=== PATIENT | male | born 1945 ===

== ENCOUNTER 2022-12-14 09:54 | Outpatient (OUT) | payer MEDICARE, OTHER, SELFPAY ==
--- NOTE | 2022-12-14 | VEIN_ITS ---
Patient: CROW WESLEY Exam Date: 12/14/2022 : 1945 Gender:M Ordering : PORTIA REESE Admission #: [id number] Family : FLAKITA CORA WOUND C Order #: [id number] CLICK HERE TO VIEW EXAM RADIOLOGY REPORT PROCEDURE: VC EXT VENOUS REFLUX ROBERTA LMTD COMPARISON: None. INDICATIONS: Pain due to varicose veins of bilateral legs I83.813 TECHNIQUE: Duplex imaging of the lower extremity to assess the deep and superficial venous system for the presence of deep or superficial venous incompetence and to document the location and severity of disease. The study includes evaluation of the great saphenous vein (GSV), anterior accessory saphenous vein (AASV) and small saphenous vein (SSV). Patient scanned in reverse Trendelenburg and standing. FINDINGS: RIGHT LOWER EXTREMITY: Saphenofemoral Junction Reflux: Yes 8.2mm 1.4 sec GSV: Diam (mm) Reflux/ Time (sec) Proximal Thigh 2.6 No Mid Thigh N/A Distal Thigh 4.9 Yes 1.3 Prox Calf N/A Mid Calf N/A Saphenopopliteal Junction Reflux: N/A SSV: Proximal Calf N/A Mid Calf N/A AASV: Not present Proximal Thigh Mid Thigh Distal Thigh Thrombi: No acute or chronic thrombus. Compressibility: Normal. Flow: Mild deep venous reflux. Severe reflux in popliteal vein. Preforator: Medial ankle 3.4mm with 4.5s reflux. Medial distal lower leg near wound 5.1 mm with 1.5s reflux. Tech Note: Plaque throughout lower extremity with normal triphasic waveform. Previously treated GSV and SSV. Incompetent varicose vein mid medial lower leg measures 4.0 mm with 2.2s reflux. Mid posterior calf varicose vein measures 2.9 mm without reflux. Varicose vein proximal medial lower leg measures 3.4 mm with 1.1s reflux. LEFT LOWER EXTREMITY: Saphenofemoral Junction Reflux: No 7.0 mm 0 sec GSV: Diam (mm) Reflux/Time (sec) Proximal Thigh 5.7 Yes 0.5 Mid Thigh N/A Distal Thigh N/A Prox Calf N/A Mid Calf N/A Saphenopopliteal Junction Relux: mm N/A SSV: Proximal Calf N/A Mid Calf N/A AASV: Not present Proximal Thigh Mid Thigh Distal Thigh Thrombi: No acute or chronic thrombus. Compressibility: Normal. Flow: Minimal deep venous reflux. Demolitionist: Distal medial lower leg 2.3 mm with 0.8s reflux. Mid posterior calf 2.3mm with 3.8s reflux. Tech Note: Small segment of patent distal GSV in lower leg measures 3.2 mm. Previously treated GSV and SSV. Incompetent varicose vein distal medial lower leg measures 1.6 mm with 0.4s reflux. Varicose vein proximal medial lower leg measures 2.9 mm with 4.2s reflux. CONCLUSION: 1. Abnormally dilated and incompetent professor criminal justice vein within distal right lower extremity adjacent chronic wound/area of chronic erythema. 2. Previously treated bilateral great saphenous and small saphenous veins. 3. A few dilated and incompetent branch saphenous varicosities bilaterally. Dictated by: Jackson Sifuentes M.D. on 12/14/2022 at 11:22 Approved by: Jackson Sifuentes M.D. on 12/14/2022 at 11:27
--- NOTE | 2022-12-14 | VEIN_ITS ---
Patient: CROW WESLEY Exam Date: 12/14/2022 : 1945 Gender:M Ordering : PORTIA REESE Admission #: [id number] Family : FLAKITA CORA WOUND C Order #: [id number] CLICK HERE TO VIEW EXAM RADIOLOGY REPORT PROCEDURE: VC FACILITY EST COMPREHENSIVE VEIN CENTER - OFFICE VISIT INITIAL COMPARISON: None. PROGRESS NOTES: [age] year old male who presents with a several month history a recurring wound on distal lower right leg. Remote history of bulging and dilated veins, leg pain, swelling, edema which resolved with prior intravenous closure of bilateral great saphenous and small saphenous veins at another institution. The patient is diabetic and has atherosclerotic disease, denies any signs and symptoms to suggest arterial ischemia. The patient describes a family history varicose veins on maternal side. The patient has drinking and smoking history of : Occasional alcohol consumption; no tobacco use. Patient has a past medical history significant for diabetes mellitus, heart disease, hypertension, atrial fibrillation. The patient denies a history of deep venous thrombus or pulmonary embolus. See separate history and physical for medication list. Prior treatment for varicose veins with closure of great and small saphenous veins bilaterally several years ago.. Prior treatments have included use of compression stockings. After review of nurse notes, history and physical exam I discussed at length the pathophysiology of venous hypertension and possible treatments, therapies and strategies available. We discussed at length the importance of elevating the lower extremities above the level of the heart, increased physical activity and compression stocking use. Ultrasound venous reflux study performed today was discussed at length with the patient. The report documents an abnormally dilated and incompetent denitrator operator vein within distal lower right leg near reoccurring wound. A few dilated incompetent branch saphenous varicosity bilaterally. PHYSICAL EXAM: The right leg demonstrates a few branch saphenous varicosities, no significant spider veins, reoccurring wound on distal lower leg, but no open ulceration, mild edema, marked skin discoloration. The left leg demonstrates a few branch saphenous varicosities, no significant spider veins, no ulceration, mild edema, marked skin discoloration. Both thighs, legs and feet were symmetrically warm to the touch. Good posterior tibial and dorsalis pedis pulses were present bilaterally. VEIN/VC Facility EST Comprehensive IMPRESSION: 1. Incompetent denitrator operator vein deep to patient's reoccurring wound within distal lower right leg. 2. Bilateral lower extremity varicose veins 3. Mild bilateral lower extremity subcutaneous edema 4. Atherosclerotic disease, but no appreciable flow significant arterial disease 5. CEAP: C4a, EC, AP, DE PLAN: 1. Continued use of compression stockings 2. Elevated legs and increased physical activity symptomatic relief 3. Endovenous laser ablation of incompetent and dilated denitrator operator vein within distal right leg. 4. Microfoam chemical ablation of a few dilated branch saphenous varicosities bilaterally. Nurse notes, history and physical were reviewed and confirmed, see attached forms. The nurse was present throughout the physical exam and consultation Dictated by: Jackson Sifuentes M.D. on 12/14/2022 at 13:28 Approved by: Jackson Sifuentes M.D. on 12/14/2022 at 13:41
== END 2022-12-14 09:55 | disposition home or self-care (01) ==
LOC: VC 09:55
PROVIDERS: PCP Podiatrist Foot & Ankle Surgery; Visit Provider Podiatrist Foot & Ankle Surgery
DX: I83.813 Varicose veins of bilateral lower extremities with pain (principal)
CPT/HCPCS: 93970; G0463

== ENCOUNTER 2022-12-18 08:40 | Outpatient (OUT) | payer MEDICARE, OTHER, SELFPAY ==
--- NOTE | 2022-12-18 08:43 | VEIN_ITS ---
[address] [address] Patient Name: CROW WESLEY MRN: [id number] date: 1945 Sex: M Assigned Patient Location: Current Patient Location: Accession/Order Number: [id number] Exam Date: 12/18/2022 08:50 Report Date: 12/18/2022 10:39 At the request of: AKANKSHA STEINBERG Procedure: VC Endovenous Perf Ablation RT EXAMINATION: VC Endovenous Perf Ablation RT COMPARISON: VC extremity venous reflux bilateral limited 12/14/2022 INDICATIONS: I83.813 Pain due to varicose veins of bilateral leg veins OPERATIVE REPORT: Diagnosis: Superficial venous reflux, incompetent perforating veins Procedure: Endovenous laser ablation of the right activated sludge attendant(s) Procedure: The patient was positioned supine on the table and the leg was prepped and draped to allow for visualization during venous access. A sterile cover was draped over a 16 mhz ultrasound probe. Venous mapping was performed prior to the procedure noting location and size of vessel(s). Film Writer vein 1: Distal medial right lower extremity just above ankle. The diameter of the vein ranged from 5.1 mm's below the muscular fascia to 5.0 mm's at the entry point. Using a 30 gauge needle the entry site was anesthetized with 0.5 cc of 1% buffered lidocaine. Access was gained percutaneously, with a 21-gauge needle, into the activated sludge attendant vein under ultrasound guidance. The needle was advanced into the desired position and the pre-measured 400-micron fiber was then inserted into the needle and locked in place. The position of the fiber was imaged with ultrasound guidance. The fiber tip was visualized to be 10 mm from the deep vessel. An anesthetic solution of 2 cc 1% buffered lidocaine was delivered along the course of the vein under ultrasound guidance using a syringe. A final positioning check of the laser fiber tip was performed. The laser was activated by means of a foot-pedal and the fiber and needle were withdrawn together in accordance to the desired joules per treatment area/spot weld. 2 areas/spot welds were performed, and the total number of joules delivered was 132. The total time of energy delivery was 16 seconds. A duplex ultrasound revealed compressibility and flow of the deep system immediately after the procedure. Hemostasis of the access site was achieved and dressed. A 20-30 mm compression stocking over coban was placed on the treated leg. Post-Op instructions were given, and a follow-up appointment was made. CONCLUSION: 1. Technically successful endovenous laser ablation of a single activated sludge attendant vein within medial distal right lower extremity. Hit traveled through a connecting varicosity to a second dilated and incompetent activated sludge attendant vein which subsequently thrombosed as desired. Electronically authenticated by: IVORY ELLISON Date: 12/18/2022 10:39
[2022-12-18] MEDS: LIDOCAINE HCL 20 ML, SODIUM BICARBONATE 2 MEQ INJ (10:28)
== END 2022-12-18 08:41 | disposition home or self-care (01) ==
LOC: VC 08:41
PROVIDERS: PCP Podiatrist Foot & Ankle Surgery; Visit Provider Radiology Diagnostic Radiology
DX: I83.813 Varicose veins of bilateral lower extremities with pain (principal)
CPT/HCPCS: 36478

== ENCOUNTER 2022-12-31 09:43 | Outpatient (OUT) | payer MEDICARE, OTHER, SELFPAY ==
--- NOTE | 2022-12-31 09:46 | VEIN_ITS ---
Patient: CROW WESLEY Exam Date: 12/31/2022 : 1945 Gender:M Ordering : DR AKANKSHA STEINBERG M.D. Admission #: [id number] Family : Order #: [id number] CLICK HERE TO VIEW EXAM RADIOLOGY REPORT PROCEDURE: FACILITY EST LMTD VEIN CENTER - OFFICE VISIT FOLLOW UP COMPARISON: None. PROGRESS NOTES: The patient reports tenderness of distal medial lower right leg in area of treatment. There has been interval reduction in varicosities. The patient has followed our recommendations to walk 20-30 minutes once or twice per day since the procedure. Physical exam demonstrates decrease in varicosities of the leg. No erythema or evidence of infection. Review of the ultrasound performed the same day demonstrates occlusive thrombus extending throughout the treated vein(s), see separate report, consistent with a successful ablation. No thrombus extending into or beyond the saphenofemoral junction. The patient expressed a desire to proceed with treatment of remaining incompetent branch saphenous varicosities. The patient was informed that treatment was a process and would require 1, possibly 2, procedures/sessions. VEIN/ Facility EST TD IMPRESSION: 1. Successful ablation of the lower right leg lead installer vein. 2. Persistent incompetent branch saphenous veins. PLAN: Endovenous laser ablation of right lower extremity incompetent branch saphenous varicosities. The patient desires more time to allow tenderness from the recent treatment to subside before proceeding. Patient will contact our office when ready. Nurse notes, history and physical were reviewed and confirmed, see attached forms. The nurse was present throughout the physical exam and consultation Dictated by: Jackson Sifuentes M.D. on 12/31/2022 at 10:36 Approved by: Jackson Siufentes M.D. on 12/31/2022 at 10:39
--- NOTE | 2022-12-31 09:47 | VEIN_ITS ---
Patient: CROW WESLEY Exam Date: 12/31/2022 : 1945 Gender:M Ordering : DR AKANKSHA STEINBERG M.D. Admission #: [id number] Family : Order #: [id number] CLICK HERE TO VIEW EXAM RADIOLOGY REPORT PROCEDURE: VC EXT VENOUS RT LMTD COMPARISON: None. INDICATIONS: Phlebitis of superficial veins of rt lower extremity I80.01 TECHNIQUE: Lower extremity velez scale and Duplex Doppler evaluation of the deep venous system from the inguinal ligament through the calf veins. FINDINGS: REGION: Right lower extremity. THROMBI: Negative for DVT. Heat induced thrombus visualized dist/med calf electromechanical assembler. COMPRESSIBILITY: Non-compressible segments. FLOW: Areas of no flow. OTHER: CONCLUSION: 1. Successful post ablation occlusion of treated distal lower right leg electromechanical assembler vein. Dictated by: Jackson Sifuentes M.D. on 12/31/2022 at 10:31 Approved by: Jackson Sifuentes M.D. on 12/31/2022 at 10:36
== END 2022-12-31 09:44 | disposition home or self-care (01) ==
LOC: VC 09:44
PROVIDERS: PCP Radiology Diagnostic Radiology; Visit Provider Radiology Diagnostic Radiology
DX: I80.01 Phlebitis and thrombophlebitis of superficial vessels of right lower extremity (principal)
CPT/HCPCS: 93971; G0463